=== PATIENT | female | born 1990 | race African-American/Black ===

== ENCOUNTER 2017-02-14 15:40 | Emergency (ER) | payer MEDICAID, SELFPAY ==
[2017-02-14 16:05] LABS: Bilirubin Negative (Negative); Blood, Urine Small (Negative); Glucose, Urine (Dipstick) Negative (Negative); Ketone, Urine Trace mg/dL (Negative); Nitrite Negative (Negative); Protein, Urine (Dipstick) Trace mg/dL (Neg-Trace); Urobilinogen 0.2 mg/dL (0.2-1.0)
[2017-02-14 16:09] LABS: Bacteria/HPF 1+ HPF (None Seen); Squamous Epithelial 21-50 HPF (0-3)
[2017-02-14 16:12] LABS: #Eosinphils 0.1 thou/uL (0.0-0.7); #Lymphocytes 2.2 thou/uL (1.20-3.40); #Monocytes 0.4 thou/uL (0.11-0.59); #Neutrophils 3.9 thou/uL (1.40-6.50); %Basophils 0.3 % (0.0-1.0); %Eosinophils 1.9 % (0.0-10.0); %Lymphocytes 33.3 % (21.0-51.0); %Monocytes 6.4 % (0.0-10.0); Hematocrit 37.8 % (36.0-47.0); Mean Platelet Volume 7.4 fL (7.4-10.4); Red Blood Cell (RBC) Count 4.53 mill/uL (4.20-5.40); White Blood Cell (WBC) Count 6.7 thou/uL (4.8-10.8)
[2017-02-14 16:28] LABS: ALT (SGPT) 14 U/L (8-55); AST (SGOT) 16 U/L (5-34); Alkaline Phosphatase 45 U/L (40-150); Anion Gap 12 mmol/L (10-20); BUN (Urea Nitrogen) 8 mg/dL (7.0-18.7); Bilirubin, Total 0.6 mg/dL (0.2-1.2); Calc. Creatinine Clearance 0 mL/min (70-130); Calcium 9.3 mg/dL (7.8-10.44); Carbon Dioxide 23 mmol/L (22-29); Chloride 103 mmol/L (98-107); Estimated GFR-MDRD Greater than 90; Globulin 2.8 g/dL (2.4-3.5); Lipase 38 U/L (8-78); Protein, Total 7.1 g/dL (6.0-8.3)
--- NOTE | 2017-02-14 17:57 | ULT ---
PELVIC ULTRASOUND Tsai scale, doppler color flow imaging performed of the pelvis with transabdominal and transvaginal i maging. 02/14/17 CLINICAL HISTORY: Suprapubic pain for three weeks. Report of positive . FINDINGS: There is evidence of an intrauterine gestation with gestational sac and pole identified. cardiac activity is documented at 121 beats per minute. On the basis of sonographic imaging, the ges tation is approximately 6 weeks, placing the estimated date of delivery by ultrasound at October 10 18. There is a focus of altered echotexture adjacent the gestational sac indicating subchorionic hemo rrhage which is moderate in volume. No significant free pelvic fluid. There is a dominant cyst of the left adnexa measuring slightly greater than 4 cm. IMPRESSION: 1. Early live intrauterine gestation. 2. Prominent sized subchorionic hemorrhage. Recommend clinical assessment as well as continued i maging followup. POS: [facility]
== END 2017-02-14 18:51 | disposition home or self-care (01) ==
LOC: ERS 15:40
DX: O23.41 Unspecified infection of urinary tract in pregnancy, first trimester (principal); Z3A.01 Less than 8 weeks gestation of pregnancy; Z79.899 Other long term (current) drug therapy
CPT/HCPCS: 36415; 76856; 80053; 81003; 81015; 83690; 84702; 85025; 87086